=== PATIENT | female | born 1975 | race Two or more races ===

== ENCOUNTER 2017-01-02 15:34 | Observation (INO) | payer MEDICAID ==
--- NOTE | 2017-01-02 15:58 | CPEKG ---
Heart Rate: 82 RR Interval: 732 P-R Interval: 132 QRSD Interval: 80 QT Interval: 416 QTC Interval: 486 P [place]: 53 QRS [place]: 9 T Wave [place]: -36 EKG Severity - ABNORMAL ECG - EKG Impression: SINUS RHYTHM EKG Impression: NONSPECIFIC T ABNORMALITIES, DIFFUSE LEADS EKG Impression: BORDERLINE PROLONGED QT INTERVAL Electronically Signed By: Ga Neville 03-Jan-2017 10:55:05
[2017-01-02] MEDS ORDERED: NS 500 ML IV ONE (16:16)
[2017-01-02] MEDS ORDERED: ASPIRIN 81 MG CHEWABLE TAB PO ONE (16:16)
--- NOTE | 2017-01-02 16:17 | UCPHY ---
H & P Patient Type: Established Chief Complaint Nursing Narrative: this am bp and left shoulder pain . Took nap . but still has. Headache and visual (can't focus) symptoms. HPI/ROS: CHIEF COMPLAINT: Hypertension, headache, shoulder pain HISTORY OF PRESENT ILLNESS: This is a 41-year-old female presents to Urgent Care reporting that when she woke this morning she had headache which was unusual for her. She felt poorly, tired, somewhat nauseous. She did not go into work stayed home and slept. When she woke this afternoon she continued to feel poorly. Blood pressure was 150s over 114 at home. She also reports intermittent should soreness in the left anterior shoulder. This discomfort is not like the occasional musculoskeletal discomfort she develops in that shoulder. It has been intermittent throughout the day. Lasting up to half an hour. She denies any chest pain, palpitations, or shortness of breath. She denies any lightheadedness, dizziness, or fainting. She was otherwise well prior to this. She does not typically have headaches. She reports discomfort in the top of her head. She has photophobia. Patient reports that she has had hypertension since she was a teenager. Sounds like it is mostly diastolic hypertension. She takes lisinopril. She has not seen a helper animal laboratory. REVIEW OF SYSTEMS: Aside from elements discussed in the HPI, a comprehensive 10-point review of systems was reviewed and is negative. PAST MEDICAL HISTORY: Hypertension. No history of hypercholesterolemia, diabetes. SOCIAL HISTORY: Rare smoker. Social alcohol use. No family history of early coronary artery disease. VITAL SIGNS Reviewed by me. GENERAL: Well-developed, well-nourished, resting comfortably in no respiratory distress. HEENT: Atraumatic. Eyes: No icterus, no injection. Mouth: moist mucous membranes. No erythema or lesions. Neck: supple with no adenopathy. LUNGS: Clear to auscultation bilaterally, no wheezes, rhonchi or rales. CARDIAC: Regular rate and rhythm, no rubs, murmurs or gallops. ABDOMEN: Soft, nontender, nondistended, bowel sounds normal. BACK: No CVA tenderness. EXTREMITIES: No trauma. No edema. Range of motion is normal throughout. Patient indicates discomfort is in the left anterior shoulder and upper left side of the chest. No reproduction of the discomfort with movement of the shoulder. No swelling. NEURO: Alert and oriented, grossly nonfocal. SKIN: Warm and dry, no rash. PSYCHIATRIC: Normal mentation, no agitation. - Personal History LMP (Females 10-55): Over 28 Days Ago - Medical/Surgical History Other PMH: Tubal ligation. HTN. Asthma - Family History Significant Family History: Hypertension (Early onset hypertension in the family members) - Social History Smoking Status: Current some day smoker Constitutional: Initial Vital Signs Temperature (C) 36.7 C 01/02/17 15:39 Heart Rate 83 01/02/17 15:39 Respiratory Rate 14 01/02/17 15:39 Blood Pressure 158/104 H 01/02/17 15:39 O2 Sat (%) 96 01/02/17 15:39 Allergies/Adverse Reactions: No Known Allergies Allergy (Verified 01/02/17 15:43) Home Medications: Medication Instructions Recorded Lisinopril 40 mg PO DAILY 05/31/12 Albuterol [Proventil Inhaler HFA 1 - 2 puffs IH DAILY PRN 01/02/17 (*)] Fluticasone/Salmeter 250/50Mcg 1 puffs IH BID 01/02/17 [Advair 250/50 (*)] Medical Decision Making - Diagnostics EKG Interpretation: 12-LEAD EKG: Please see the full report in [facility]. My interpretation: Sinus rhythm, T-wave inversions lead 3, V2 V3 V4 and T-wave flattening in V5 and AVF. No old EKG to compare. ED Course/Re-evaluation: 41-year-old female presenting with headache, nausea, left shoulder discomfort, and hypertension. On arrival to Urgent Care blood pressure is 150/104. EKG is concerning for diffuse T-wave abnormalities. Patient received aspirin 324 mg. This relieved her discomfort in the shoulder. Evaluation demonstrates normal troponin. Normal labs. Patient declined chest x -ray. Given her history of diastolic hypertension, no prior cardiac evaluation, no prior EKG, feels prudent to admit the patient to observation for serial troponins, possible echocardiogram, and potential stress testing. Course discussed with Dr. Yenifer Rivers. Patient transferred to [facility] and admitted to the [facility]. Differential Diagnosis: After history and physical examination, the differential for this patient's presenting complaints was considered, including but not limited to, myocardial ischemia, acute coronary syndrome, pulmonary embolus, chest wall pain, local shoulder irritation, arthritis, and pulmonary infectious causes. Consult/Admit Bed Type: Dr. Yenifer Rivers, [facility] - Data Points Laboratory Results: Laboratory Results 01/02/17 16:05 01/02/17 16:05 Medications Given: Discontinued Medications Aspirin (Aspirin) 324 mg PO EDNOW ONE Stop: 01/02/17 16:17 Last Admin: 01/02/17 16:35 Dose: 324 mg Sodium Chloride (Ns) 500 mls @ 0 mls/hr IV ONCE ONE PRN Reason: As Directed Stop: 01/02/17 16:17 Last Admin: 01/02/17 16:30 Dose: 500 mls Lisinopril (Zestril) 40 mg PO DAILY [facility] Stop: 07/02/17 08:59 Last Admin: 01/03/17 08:36 Dose: 40 mg Morphine Sulfate (Morphine) 4 mg IVP EDNOW ONE Stop: 01/02/17 16:17 Last Admin: 01/02/17 16:35 Dose: Not Given Fluticasone/Salmeterol (Advair) 1 puffs IH BID [facility]WNY Stop: 07/02/17 08:59 Last Admin: 01/03/17 09:31 Dose: 1 puffs Departure - Departure Disposition: [facility] Acute Clinical Impression: Rule out ACS, Abnormal EKG Shoulder pain, left Qualifiers: Chronicity: acute Qualifier Code: (M25.512) Pain in left shoulder Hypertension Qualifiers: Hypertension type: essential hypertension Qualifier Code: (I10) Essential ( primary) hypertension - PQRS PQRS Measurement: Not applicable
[2017-01-02 16:20] LABS: % IMMATURE GRANULYOCYTES 0.3 % (0.0-1.1); ABSOLUTE IMMATURE GRANULOCYTES 0.02 10^3/uL (0.00-0.10); ADD DIFF? NO; ADD MORPH? NO; ADD SCAN? NO; ATYPICAL LYMPHOCYTE FLAG 10 (0-99); FRAGMENT RBC FLAG 0 (0-99); HEMATOCRIT 40.6 % (38.0-47.0); LEFT SHIFT FLG 0 (0-99); LIPEMIA HEMOLYSIS FLAG 90 (0-99); MEAN CELL HEMOGLOBIN 32.8 pg (27.9-34.1); MEAN CELL HEMOGLOBIN CONCENTR. 34.5 g/dL (32.4-36.7); MEAN CELL VOLUME 95.1 fL (81.5-99.8); MEAN PLATELET VOLUME 9.8 fL (8.7-11.7); PLATELET CLUMPS FLAG 0 (0-99); PLATELET COUNT 231 10^3/uL (150-400); RED BLOOD CELL COUNT 4.27 10^6/uL (4.18-5.33); RED CELL DISTRIBUTION WIDTH 13.2 % (11.5-15.2)
[2017-01-02 16:28] LABS: ALANINE AMINOTRANSFERASE 45 IU/L (9-52); ALBUMIN 3.7 g/dL (3.5-5.0); ALKALINE PHOSPHATASE 108 IU/L (38-126); ANION GAP 10 mEq/L (8-16); ASPARTATE AMINOTRANSFERASE 42 IU/L (14-46); BILIRUBIN,TOTAL 0.7 mg/dL (0.1-1.4); BILIRUBIN-CONJUGATED 0.2 mg/dL (0.0-0.5); BILIRUBIN-UNCONJUGATED 0.5 mg/dL (0.0-1.1); CALCIUM 8.6 mg/dL (8.5-10.4); CARBON DIOXIDE 21 mEq/l (22-31); CHLORIDE 108 mEq/L (97-110); CREATININE 0.7 mg/dL (0.6-1.0); GLOMERULAR FILTRATION RATE > 60; GLUCOSE 124 mg/dL (70-100); SODIUM 139 mEq/L (134-144); TOTAL PROTEIN 6.8 g/dL (6.3-8.2)
[2017-01-02 16:39] LABS: TROPONIN I < 0.012 ng/mL (0-0.034)
[2017-01-02] MEDS ORDERED: ACETAMINOPHEN 325 MG TAB PO PRN (22:26)
[2017-01-02] MEDS ORDERED: ONDANSETRON DISINTEGRATING 4 MG TAB PO PRN (22:26)
[2017-01-02] MEDS ORDERED: HYDROCODONE/APAP 5/325 TAB PO PRN (22:26)
[2017-01-02] MEDS ORDERED: ONDANSETRON 4 MG/2 ML VIAL IVP PRN (22:26)
[2017-01-02] MEDS ORDERED: LORazepam 0.5 MG TAB PO PRN (22:26)
[2017-01-02] MEDS ORDERED: ALBUTEROL 60 PUFFS/8 GM MDI IH PRN (22:26)
--- NOTE | 2017-01-02 22:45 | PDGENHP ---
History and Physical - Chief Complaint headache - History of Present Illness Patient is 41/F with difficult to control hypertension (diagnosed at age 17), asthma who presented to Urgent Care complaining of a headache and high blood pressure. Patient states she woke up this morning feeling generally unwell and had a headache. she described the headache as located on the top of her head, moderate in intensity and associated with photophobia and nausea. She reports she does not usually get headaches, can' t remember the last time she had one, so she decided to check her blood pressure. On checking her BP with her home cuff, she noted it to be in the 160/110 range. At this point she decided to go to the urgent care for further evaluation. While at the urgent care patient also began to feel left shoulder pain, which she describes as pressure like and radiating to her posterior neck. She denies any trauma to the area or recent heavy lifting and had not experienced that type of pain before. she also reports experiencing a generalized fatigue, shows occasional palpitations and occasional lightheadedness throughout the day. Urgent care evaluation revealed elevated blood pressure, EKG with nonspecific T -wave changes and negative troponin. She was given full-dose aspirin and symptoms improved. She was then transferred to [facility] for further evaluation and admission. Of note, patient reports being diagnosed with high blood pressure at the age of 17, but has never undergone a workup for secondary hypertension. She reports over the past 2 months BP has been more difficult to control, and her lisinopril dose had been recently up titrated. Denies ever having an ekg, stress test or echocardiogram in the past. She does report exercising at least twice a week, and has recently experienced occasional dizziness when exercising. Denies orthopnea, PND, edema. History Information - Allergies/Home Medication List Allergies/Adverse Reactions: No Known Allergies Allergy (Verified 01/02/17 15:43) Home Medications: Lisinopril 40 mg PO DAILY 05/31/12 [Last Taken 01/02/17] Albuterol [Proventil Inhaler HFA (*)] 1 - 2 puffs IH DAILY PRN 01/02/17 [Last Taken Unknown] Fluticasone/Salmeter 250/50Mcg [Advair 250/50 (*)] 1 puffs IH BID 01/02/17 [ Last Taken 01/02/17] I have personally reviewed and updated: family history, medical history, social history, surgical history - Past Medical History Additional medical history: Asthma (well controlled on advair). 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 Review of Systems ROS: 10pt was reviewed & negative except for what was stated in HPI & below Physical Exam Temp Pulse Resp BP Pulse Ox 36.7 C 85 17 135/94 H 94 01/02/17 21:33 01/02/17 21:33 01/02/17 21:33 01/02/17 21:33 01/02/17 21:33 Constitutional: no apparent distress, appears nourished, not in pain Eyes: PERRL, anicteric sclera, EOMI Ears, Nose, Mouth, Throat: moist mucous membranes, hearing normal, ears appear normal, no oral mucosal ulcers Cardiovascular: regular rate and rhythym, no murmur, rub, or gallop, pulses symmetric bilaterally, No JVD, No edema Peripheral Pulses: 2+: dorsalis-pedis (R), dorsalis-pedis (L) Respiratory: no respiratory distress, no rales or rhonchi, clear to auscultation Gastrointestinal: normoactive bowel sounds, soft, non-tender abdomen, no palpable masses, No guarding, No rebound Genitourinary: no bladder fullness, no bladder tenderness Skin: warm, normal color, no rashes or abrasions, no fluctuance, No mottled Musculoskeletal: full muscle strength, no muscle tenderness, normal joint ROM, no joint effusions Neurologic: AAOx3, sensation intact bilaterally, CN II-XII Intact, No weakness, No numbness Psychiatric: interacting appropriately, not anxious, not encephalopathic, thought process linear Lab Data & Imaging Review 01/02/17 16:05 01/02/17 16:05 WBC 7.17 10^3/uL (3.80-9.50) 01/02/17 16:05 RBC 4.27 10^6/uL (4.18-5.33) 01/02/17 16:05 Hgb 14.0 g/dL (12.6-16.3) 01/02/17 16:05 Hct 40.6 % (38.0-47.0) 01/02/17 16:05 MCV 95.1 fL (81.5-99.8) 01/02/17 16:05 MCH 32.8 pg (27.9-34.1) 01/02/17 16:05 MCHC 34.5 g/dL (32.4-36.7) 01/02/17 16:05 RDW 13.2 % (11.5-15.2) 01/02/17 16:05 Plt Count 231 10^3/uL (150-400) 01/02/17 16:05 MPV 9.8 fL (8.7-11.7) 01/02/17 16:05 Neut % (Auto) 60.1 % (39.3-74.2) 01/02/17 16:05 Lymph % (Auto) 29.8 % (15.0-45.0) 01/02/17 16:05 [place] % (Auto) 7.3 % (4.5-13.0) 01/02/17 16:05 Eos % (Auto) 1.5 % (0.6-7.6) 01/02/17 16:05 Baso % (Auto) 1.0 % (0.3-1.7) 01/02/17 16:05 Nucleat RBC Rel Count 0.0 % (0.0-0.2) 01/02/17 16:05 Absolute Neuts (auto) 4.31 10^3/uL (1.70-6.50) 01/02/17 16:05 Absolute Lymphs (auto) 2.14 10^3/uL (1.00-3.00) 01/02/17 16:05 Absolute Monos (auto) 0.52 10^3/uL (0.30-0.80) 01/02/17 16:05 Absolute Eos (auto) 0.11 10^3/uL (0.03-0.40) 01/02/17 16:05 Absolute Basos (auto) 0.07 10^3/uL (0.02-0.10) 01/02/17 16:05 Absolute Nucleated RBC 0.00 10^3/uL (0-0.01) 01/02/17 16:05 Immature Gran % 0.3 % (0.0-1.1) 01/02/17 16:05 Immature Gran # 0.02 10^3/uL (0.00-0.10) 01/02/17 16:05 Sodium 139 mEq/L (134-144) 01/02/17 16:05 Potassium 4.0 mEq/L (3.5-5.2) 01/02/17 16:05 Chloride 108 mEq/L (97-110) 01/02/17 16:05 Carbon Dioxide 21 mEq/l (22-31) L 01/02/17 16:05 Anion Gap 10 mEq/L (8-16) 01/02/17 16:05 BUN 10 mg/dL (7-23) 01/02/17 16:05 Creatinine 0.7 mg/dL (0.6-1.0) 01/02/17 16:05 Estimated GFR > 60 01/02/17 16:05 Glucose 124 mg/dL (70-100) H 01/02/17 16:05 Calcium 8.6 mg/dL (8.5-10.4) 01/02/17 16:05 Total Bilirubin 0.7 mg/dL (0.1-1.4) 01/02/17 16:05 Conjugated Bilirubin 0.2 mg/dL (0.0-0.5) 01/02/17 16:05 Unconjugated Bilirubin 0.5 mg/dL (0.0-1.1) 01/02/17 16:05 AST 42 IU/L (14-46) 01/02/17 16:05 ALT 45 IU/L (9-52) 01/02/17 16:05 Alkaline Phosphatase 108 IU/L (38-126) 01/02/17 16:05 Troponin I < 0.012 ng/mL (0-0.034) 01/02/17 19:41 Total Protein 6.8 g/dL (6.3-8.2) 01/02/17 16:05 Albumin 3.7 g/dL (3.5-5.0) 01/02/17 16:05 Lipase 44.0 IU/L (23-300) 01/02/17 16:05 Visualized and Interpreted EKG results: Yes EKG Interpretation: Positive for: normal sinsus rhythm (TWI in V2-V4, III, aVF) Assessment & Plan Assessment: Patient is a 41-year-old female with history of hypertension and asthma who presents to an urgent care with complaint of high blood pressure and headache, as well as left shoulder pain. EKG with nonspecific T-wave abnormalities, trop negative. Plan: # L chest/shoulder pain Risk factors for cardiac etiology include longstanding HTN, occasional smoking history. EKG also abnormal, but have no old EKGs to compare. Will r/o ACS and if negative, will evaluate with stress test in AM. - trend troponins, serial EKGs - aspirin 81 mg daily - check lipid panel, TSH - exercise stress test and TTE in AM # chronic hypertension, elevated BP On initial presentation to , BP was > 150/100, improved with treatment of patient's symptoms. Apparently she and her PMD have been adjusting her home BP med due to recently elevated BPs. Now on Lisinopril 40 daily, can consider adding second agent on this admission. # headache Patient denies any previous history of headaches. Symptom could be a manifestation of elevated BP/HTN urgency. No neurologic deficits, no bruits on exam, BP symmetric on both arms. Will cont to monitor and treat prn. # asthma Well control, respiratory status stable on presentation. # dispo: admit to observation status for evaluation of chest pain # full code
[2017-01-03 05:30] LABS: % IMMATURE GRANULYOCYTES 0.2 % (0.0-1.1); ABSOLUTE IMMATURE GRANULOCYTES 0.01 10^3/uL (0.00-0.10); ADD DIFF? NO; ADD MORPH? NO; ADD SCAN? NO; ATYPICAL LYMPHOCYTE FLAG 10 (0-99); FRAGMENT RBC FLAG 0 (0-99); HEMATOCRIT 36.6 % (38.0-47.0); HEMOGLOBIN 12.4 g/dL (12.6-16.3); LEFT SHIFT FLG 0 (0-99); LIPEMIA HEMOLYSIS FLAG 90 (0-99); MEAN CELL HEMOGLOBIN CONCENTR. 33.9 g/dL (32.4-36.7); MEAN CELL VOLUME 97.3 fL (81.5-99.8); MEAN PLATELET VOLUME 10.2 fL (8.7-11.7); PLATELET CLUMPS FLAG 0 (0-99); PLATELET COUNT 192 10^3/uL (150-400); RED BLOOD CELL COUNT 3.76 10^6/uL (4.18-5.33); RED CELL DISTRIBUTION WIDTH 13.3 % (11.5-15.2)
[2017-01-03 05:38] LABS: PROTIME(PATIENT) 13.1 SEC (12.0-15.0)
[2017-01-03 05:39] LABS: APTT 24.7 SEC (23.0-38.0)
[2017-01-03 05:52] LABS: ANION GAP 8 mEq/L (8-16); CALCIUM 8.2 mg/dL (8.5-10.4); CARBON DIOXIDE 21 mEq/l (22-31); CHLORIDE 111 mEq/L (97-110); CHOLESTEROL 146 mg/dL (140-200); CHOLESTEROL/HDL RATIO 1.42 RATIO (1.00-4.44); CREATININE 0.8 mg/dL (0.6-1.0); GLOMERULAR FILTRATION RATE > 60; GLUCOSE 93 mg/dL (70-100); HIGH DENSITY LIPOPROTEIN 103 mg/dL (40-80); LDL/HDL RATIO 0.24 RATIO (1.00-3.22); LOW DENSITY LIPOPROTEIN 25 mg/dL (70-100); MAGNESIUM 1.9 mg/dL (1.6-2.3); NON-HIGH DENSITY LIPOPROTEIN 43 mg/dL (90-129); SODIUM 140 mEq/L (134-144); TRIGLYCERIDE 91 mg/dL (35-135); VERY LOW DENSITY LIPOPROTEINS 18 mg/dL (8-25)
[2017-01-03 05:56] LABS: TROPONIN I < 0.012 ng/mL (0-0.034)
[2017-01-03 08:33] VITALS: BP 122/86; RESP 18; TEMP 97.8
--- NOTE | 2017-01-03 08:45 | CPEKG ---
Heart Rate: 58 RR Interval: 1034 P-R Interval: 140 QRSD Interval: 78 QT Interval: 468 QTC Interval: 460 P [place]: 49 QRS [place]: 20 T Wave [place]: -11 EKG Severity - ABNORMAL ECG - EKG Impression: SINUS RHYTHM EKG Impression: NONSPECIFIC T ABNORMALITIES, ANTERIOR LEADS Electronically Signed By: Ga Neville 03-Jan-2017 10:54:58
[2017-01-03] MEDS ORDERED: LISINOPRIL 40 MG TAB PO SCH (09:00)
[2017-01-03] MEDS ORDERED: FLUTICASONE/SALMETER 250/50MCG DISKUS IH SCH (09:00)
[2017-01-03 09:44] VITALS: PULSE 58; O2SAT 97
[2017-01-03 10:28] LABS: HEMOGLOBIN A1C 5.2 % (4.0-6.0)
--- NOTE | 2017-01-03 10:45 | ECHO ---
[id number] + + [id number] : : [place] [id number] : : [phone] + Adult Echocardiographic Report + ----+ :Name: DEIDRE OQUENDO EStalonso Date: 01/03/2017 07:22 AM BP: 110/84 mmHg : : Hospital Admission Number: [id number] Location: 201: :: 1975 Gender: Female Height: 60 in : :Age: 41 yrs Race: [facility] Weight: 144 lb : :Reason For Study: HTN : : BSA: 1.6 meters2 : :History: uncontrolled hypertension : + ----+ MMode/2D Measurements & Calculations IVSd: 0.89 cm RVDd: 2.7 cm FS: 42.1 % Ao root diam: LVPWd: 0.78 cm LVIDd: 3.9 cm EDV(Teich): 2.5 cm LVIDs: 2.3 cm 67.6 ml LA dimension: ESV(Teich): 3.6 cm 17.8 ml EF(Teich): 73.7 % LVLd ap4: 8.4 cm SV(MOD-sp4): EDV(MOD-sp4): 61.0 ml 85.0 ml LVLs ap4: 6.3 cm ESV(MOD-sp4): 24.0 ml EF(MOD-sp4): 71.8 % Normal Measurement Values: + + :LVIDd (3.5-5.7cm) IVSd (0.6-1.1cm) LVPWd (0.6-1.1cm) Aortic Root (2.0-3.7cm)Left Atrium (1.5-4.0cm): :LV Vol(d) (76-115ml) LV Vol(s) (29-48ml) Ejec Fraction (50-65%)PV Ralph (0.6- 1.2m/s) TV Ralph (0.4-1.0m/s) : :MV E Ralph (0.8-1.0m/s)MV A Ralph (0.3-1.0m/s)LVOT Ralph (0.7-1.2m/s) Asc Ao Ralph ( 0.9-1.8m/s) : + + Doppler Measurements & Calculations MV E max ralph: Ao V2 max: LV V1 max: PA V2 max: 110.1 cm/sec 134.7 cm/sec 117.5 cm/sec 93.0 cm/sec MV A max ralph: Ao max PG: LV V1 max PG: PA max P.6 cm/sec 7.3 mmHg 5.5 mmHg 3.5 mmHg MV E/A: 1.7 MV dec time: 0.24 sec TR max ralph: 227.0 cm/sec TR max P.6 mmHg RAP systole: 5.0 mmHg RVSP(TR): 25.6 mmHg Left Ventricle The left ventricle is normal in size and function. There is normal left ventricular wall thickness. Ejection Fraction = 70%. No regional wall motion abnormalities noted. Right Ventricle The right ventricle is normal in size and function. Atria The left atrial size is normal. Right atrial size is normal. Mitral Valve The mitral valve is normal in structure and function. There is no mitral valve stenosis. There is no mitral regurgitation noted. Tricuspid Valve The tricuspid valve is normal in structure and function. There is no tricuspid stenosis. There is mild tricuspid regurgitation. Right ventricular systolic pressure is 26mmHg. Aortic Valve The aortic valve is trileaflet. There is no aortic stenosis. There is no aortic insufficiency. Pulmonic Valve The pulmonic valve is not well visualized. Great Vessels The aortic root is normal size. Pericardium/Pleural There is no pericardial effusion. Conclusion A two-dimensional transthoracic echocardiogram with M-mode and Doppler was performed. The left ventricle is normal in size and function. Ejection Fraction = 70%. There is mild tricuspid regurgitation. Right ventricular systolic pressure is 26mmHg. Final Reading Physician: Yomaira Delacruz signed on 01/03/2017 10:44 AM Ordering Physician: Lucero Rivers Performed By: Kae Urias
--- NOTE | 2017-01-03 11:22 | HOSPPROG ---
Hospitalist Progress Note Assessment/Plan: 41 yo F w htn, chest pain neg stress see dc summary Subjective: neg stress Objective: Vital Signs Temp Pulse Resp BP Pulse Ox 36.6 C 58 L 18 122/86 H 97 01/03/17 08:00 01/03/17 09:28 01/03/17 09:28 01/03/17 08:00 01/03/17 09:28 Laboratory Results 01/03/17 03:54 01/03/17 03:54 01/02/17 01/03/17 01/04/17 05:59 05:59 05:59 Intake Total 650 Balance 650 PT 13.1 SEC (12.0-15.0) 01/03/17 03:54 INR 1.00 (0.83-1.16) 01/03/17 03:54 - Physical Exam Constitutional: no apparent distress, appears nourished, not in pain Eyes: PERRL, anicteric sclera, EOMI Ears, Nose, Mouth, Throat: moist mucous membranes, hearing normal, ears appear normal, no oral mucosal ulcers Cardiovascular: regular rate and rhythym, no murmur, rub, or gallop Respiratory: no respiratory distress, no rales or rhonchi, clear to auscultation Gastrointestinal: normoactive bowel sounds, soft, non-tender abdomen, no palpable masses Skin: no rashes or abrasions, no fluctuance, no induration Musculoskeletal: full muscle strength, no muscle tenderness, normal joint ROM Neurologic: AAOx3, sensation intact bilaterally ICD10 Worksheet Patient Problems: Problems Problem Status Onset Abnormal EKG Acute Hypertension Acute Shoulder pain, left Acute
--- NOTE | 2017-01-03 19:33 | GDS ---
[f rep st] DISCHARGE SUMMARY DISCHARGE DIAGNOSES: 1. Hypertension. 2. Chest pain. HOSPITAL COURSE: Please see admission history and physical by Dr. Lucero Rivers. The patient pr esented with chest pain. She had anterior T-wave inversions. She was admitted for further evaluatio n. She had negative troponins. She had an unremarkable echocardiogram, including no sequelae of noman gstanding hypertension. Additionally, she had a stress test that showed her anterior T-wave inversio ns had normalize and then returned. This was felt to be a negative stress test. /[id number]/MODL
--- NOTE | 2017-01-03 20:14 | CPR ---
[f rep st] NONINVASIVE CARDIAC PROCEDURE REPORT DATE OF PROCEDURE: 01/03/2017 PROCEDURE: Exercise stress test. REASON FOR TEST: Chest pain. She has a history of hypertension. No family history of coronary carlyle ry disease. FINDINGS: Resting EKG shows a regular sinus rhythm with a rate of 64, resting blood pressure 116/86. She has no chest pain. 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 She has point pressure discomfort when examined. She had no ischemic changes with exercise. The T wave that was inverted on pre-exercise in the anterior leads normalized with exertion. She had no shortness of breath, dizz iness, or other anginal related symptoms. Exercise heart rate maximal at 156, peak blood pressure 16 8/80. Met level 10. Exercise stopped due to maximal effort. RECOVERY: She spontaneously recovered rapidly. Her resting blood pressure 128/80, resting heart rat e 91. She remained asymptomatic. Post-exercise EKG showed anterior T-wave inversion as was seen pre vious to exercise. SUMMARY: The T-wave inversion in the anterior leads did normalize with exertion. They returned duri ng recovery. She was asymptomatic. The chest discomfort she described she feels only when the area is palpated. Test results reviewed with Dr. Kosta Miner. He agrees this is a normal treadmill s tress test. Her baseline normal has T-wave inversion with the late R-wave progression. At this time, she currently is stable to return to her room. /[id number]/MODL
== END 2017-01-03 13:00 | disposition home or self-care (01) ==
LOC: CED 15:34 → CEDHOLD 17:15 → UNDOADMOB 17:15 → F2W 21:21 → CEDHOLD 21:21 → INTOOBSV 22:26 → OBSVTOIN 22:26 → UNDODISOB 01-03 13:00
PROVIDERS: ADMIT Internal Medicine; ATTEND Internal Medicine
DX: R07.9 Chest pain, unspecified (principal); I10 Essential (primary) hypertension
CPT/HCPCS: 93005; 93017; 93306; 96360; 99213; G0378; 80048-PO; 80076-PO; 83690-PO; 84484-PO; 85025-PO; G0463-PO